=== PATIENT | female | born 1950 | race Caucasian/White ===

== ENCOUNTER 2017-02-22 07:28 | Day surgery (SDC) | payer BC ==
[2017-02-20 15:35] VITALS: BMI 24.5
[2017-02-22] MEDS ORDERED: DEXAMETHASONE SOD PHOSPHATE/PF 10 MG/ML SDV ONE (09:10)
[2017-02-22] MEDS ORDERED: MIDAZOLAM HCL 2 MG/2 ML SINGLE DOSE VIAL ONE (09:10)
[2017-02-22] MEDS ORDERED: ROPIVACAINE HCL 0.5% 30ML VIAL ONE (09:10)
[2017-02-22] MEDS ORDERED: PROPOFOL 20 ML ONE ×4 (09:34)
[2017-02-22] MEDS ORDERED: DEXAMETHASONE SOD PHOSPHATE 4 MG/1 ML VIAL ONE (10:39)
[2017-02-22] MEDS ORDERED: ceFAZolin SODIUM 1 GM VIAL ONE (10:39)
[2017-02-22] MEDS ORDERED: ONDANSETRON 4 MG/2 ML VIAL ONE (10:39)
[2017-02-22] MEDS ORDERED: LABETALOL HCL 5 MG/1 ML (100MG/20 ML VIAL) ONE (10:39)
[2017-02-22] MEDS ORDERED: EPINEPHrine 1:1,000 1 MG/1 ML - 30ML VIAL (INJECTION) ONE (10:40)
[2017-02-22] MEDS ORDERED: ONDANSETRON 4 MG/2 ML VIAL IVPUSH PRN (11:13)
[2017-02-22] MEDS ORDERED: PROMETHAZINE HCL 25 MG/1 ML VIAL IVPUSH PRN (11:13)
[2017-02-22] MEDS ORDERED: oxyCODONE HCL 5 MG TABLET PO PRN ×2 (11:13)
[2017-02-22] MEDS ORDERED: LACTATED RINGERS SOLUTION 1,000 ML IV SCH (11:15)
[2017-02-22 12:17] VITALS: TEMP 97.4
[2017-02-22] MEDS ORDERED: oxyCODONE HCL 5 MG TABLET ONE (12:19)
[2017-02-22 12:53] VITALS: BP 117/75; PULSE 74
--- NOTE | 2017-02-24 08:38 | OP ---
DATE OF OPERATION: 02/22/2017 SURGEON: Mars Butler MD MANAGER TECHNICAL SALES: [employer] PREOPERATIVE DIAGNOSES: 1. Left shoulder rotator cuff tear. 2. Left shoulder impingement syndrome. 3. Left shoulder acromioclavicular joint disease. 4. Left shoulder superior labral tear, [id number], with synovitis. 5. Dislocating, torn long head biceps tendon. POSTOPERATIVE DIAGNOSES: 1. Left shoulder rotator cuff tear. 2. Left shoulder impingement syndrome. 3. Left shoulder acromioclavicular joint disease. 4. Left shoulder superior labral tear, [id number], with synovitis. 5. Dislocating, torn long head biceps tendon. PROCEDURE: 1. Left shoulder arthroscopy with arthroscopic rotator cuff repair. 2. Left shoulder arthroscopy with subacromial decompression. 3. Left shoulder arthroscopy with resection of the subclavicle acromioclavicular joint. 4. Left shoulder arthroscopy with debridement/major. 5. Biceps tenodesis, long head biceps. CPT CODES: 76441, 37531, 24758, 34642 FINDINGS: 1. Excessive synovitis. 2. Diffuse grade 2, 3 cartilage injury to the glenoid and humerus. 3. Dislocation of biceps tendon with tearing of greater than 30% and extensive synovitis, biceps tendon. 4. Full-thickness rotator cuff tear. 5. Type 2 to 3 acromion with anterior spurring. 6. Inferior acromioclavicular joint disease. 7. Infraspinatus tear. 8. subscapularis tear. REPAIR TYPE: Due to the extensive dislocation and tearing of the biceps tendon, it was released from the superior labral insertion and a biceps tenodesis was repaired to a bleeding bone bed along the greater tuberosity. On top of this, rotator cuff repair was performed with 2 anchors placed into the supraspinatus and secured to a bleeding bone bed and incorporating the biceps tenodesis into the repair. PROCEDURE: Informed consent was obtained. The patient was taken to the operating room where the upper extremity was prepped and draped in a sterile fashion. The shoulder was manipulated for a full range of motion. Posterior incision portal was made and directed to glenohumeral joint. Under direct visualization, an anterior incision and portal was made. Extensive synovitis, as well as chondral injuries throughout the glenohumeral joint were dbrided and removed. Any identified labral injuries, including superior labral tear, anterior and posterior, and anterior labrum torn portions were removed as well. Rotator cuff was visualized and noted to have full-thickness tear. The edges were debrided. Posterior incision portal was redirected to subacromial space where a lateral incision portal was made. Excessive and thickened scar tissue noted throughout the subacromial space, including bursal and scar tissue, were removed. The type 2 acromion was converted into a flattened type 1 using a tabatha for subacromial decompression. Distal inferior spur at the distal clavicle was also dbrided with the use of accessory portal in the AC joint. The edges of the rotator cuff were identified. Sutures were placed into the rotator cuff and secured using anchors throughout the greater tuberosity. Prior to securing, a bleeding bed was made using a small tabatha, creating a bleeding surface of the rotator cuff insertion. The shoulder was then drained. A single suture as placed on all portals and a sterile dressing was placed. The patient was transferred to the recovery room without complication. MARS BUTLER M.D. [id number]
== END 2017-02-22 12:55 | disposition home or self-care (01) ==
LOC: FASU 07:28
PROVIDERS: ATTEND Orthopaedic Surgery
PROC: 0LS24ZZ Reposition Left Shoulder Tendon, Percutaneous Endoscopic Approach (ICD-10-PCS; 2017-02-22)
PROC: 0RNK4ZZ Release Left Shoulder Joint, Percutaneous Endoscopic Approach (ICD-10-PCS; 2017-02-22)
PROC: 0RBK4ZZ Excision of Left Shoulder Joint, Percutaneous Endoscopic Approach (ICD-10-PCS; 2017-02-22)
PROC: 0PBB4ZZ Excision of Left Clavicle, Percutaneous Endoscopic Approach (ICD-10-PCS; 2017-02-22)
PROC: 0LB24ZZ Excision of Left Shoulder Tendon, Percutaneous Endoscopic Approach (ICD-10-PCS; principal; 2017-02-22 10:15)
DX: M75.102 Unspecified rotator cuff tear or rupture of left shoulder, not specified as traumatic (principal); M75.42 Impingement syndrome of left shoulder; M19.012 Primary osteoarthritis, left shoulder; S43.432A Superior glenoid labrum lesion of left shoulder, initial encounter; S46.112A Strain of muscle, fascia and tendon of long head of biceps, left arm, initial encounter; X58.XXXA Exposure to other specified factors, initial encounter; Y93.9 Activity, unspecified; Y92.9 Unspecified place or not applicable
CPT/HCPCS: 94760

== ENCOUNTER 2019-10-12 06:04 | Inpatient (IN) | payer BC ==
[2019-10-07 15:47] VITALS: BMI 22.6
[2019-10-12] MEDS ORDERED: MIDAZOLAM HCL 2 MG/2 ML SINGLE DOSE VIAL ONE (07:10)
[2019-10-12] MEDS ORDERED: ROPIVACAINE HCL 0.5% 30ML VIAL ONE (07:11)
--- NOTE | 2019-10-12 07:11 | HP ---
History & Physical Update - History History: No Change - Physical Physical: No Change - Assessment Assessment: No Change - Plan Plan: No Change
[2019-10-12] MEDS ORDERED: VANCOMYCIN 1,000 MG VIAL (RESTRICTED TO ID ONLY) ONE ×2 (07:13→08:07)
[2019-10-12] MEDS ORDERED: TRANEXAMIC ACID 1000 MG/10 ML VIAL ONE ×2 (07:13→08:07)
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
[2019-10-12] MEDS ORDERED: PROPOFOL 20 ML ONE (07:45)
[2019-10-12] MEDS ORDERED: ROCURONIUM BROMIDE 50 MG/5 ML VIAL ONE ×2 (07:45→09:22)
[2019-10-12] MEDS ORDERED: LIDOCAINE HCL/PF 2% SDV 5ML VIAL ONE (07:46)
[2019-10-12] MEDS ORDERED: SODIUM CHLORIDE 0.9% P/F 10 ML VIAL IJ ONE ×2 (08:00→08:07)
[2019-10-12] MEDS ORDERED: ePHEDrine SULFATE 50 MG/1 ML AMPULE ONE ×2 (08:00→08:55)
[2019-10-12] MEDS ORDERED: ceFAZolin SODIUM 1 GM VIAL ONE (08:07)
[2019-10-12] MEDS ORDERED: DEXAMETHASONE SOD PHOSPHATE 4 MG/1 ML VIAL ONE (08:12)
[2019-10-12] MEDS ORDERED: ONDANSETRON 4 MG/2 ML VIAL ONE (08:12)
[2019-10-12] MEDS ORDERED: ONDANSETRON 4 MG/2 ML VIAL IVPUSH PRN (10:03)
[2019-10-12] MEDS ORDERED: VANCOMYCIN 1,000 MG VIAL (RESTRICTED TO ID ONLY) IVPB ONE (10:08)
[2019-10-12] MEDS ORDERED: ACETAMINOPHEN 325 MG TABLET (FP) PO SCH (10:15)
[2019-10-12] MEDS ORDERED: LACTATED RINGERS SOLUTION 1,000 ML IV SCH (10:15)
[2019-10-12] MEDS ORDERED: GLYCOPYRROLATE 0.2 MG/1 ML VIAL ONE (10:18)
[2019-10-12] MEDS ORDERED: NEOSTIGMINE METHYLSULFATE 0.5 MG/ML - 10 ML MDV ONE (10:19)
[2019-10-12] MEDS ORDERED: SUCCINYLCHOLINE CHLORIDE 200 MG/10 ML SYRINGE ONE (10:30)
[2019-10-12] MEDS ORDERED: ACETAMINOPHEN 1000 MG/100 ML VIAL (NON FORMULARY) IVPB ONE (11:40)
--- NOTE | 2019-10-12 11:42 | OPR ---
Procedure: Left Shoulder- 1. Reverse total shoulder arthroplasty (42682) 2. Biceps tenodesis (44789) 3. Removal of prior anchors in humeral head (58346) Preoperative Diagnoses: Left Shoulder- 1. Glenohumeral osteoarthritis 2. Rotator cuff tear 3. Biceps tendonitis/degeneration Postoperative Diagnoses: Left Shoulder- 1. Glenohumeral osteoarthritis 2. Rotator cuff tear 3. Biceps tendonitis/degeneration Surgeon: Kirill Pitts DO Assistants: Trenton Braun DO Anesthesia: General endotracheal anesthesia, IV regional with interscalene nerve block preop Estimated Blood Loss: 100 Total IV Fluids: Per anesthesia record Specimens: Humeral head Implants: [employer] Humelock Reversed System 24 mm baseplate with +6 mm post extension 4.5 mm locking screws x 3 36 mm, 10-degree tilt centered glenosphere with 3.5 mm offset 36mm/12mm humeral stem 22 mm standard screw +3 polyethylene insert with no build up Complications: None Disposition: PACU Condition: Hemodynamically stable Indications: January Pierce presented to us with the above noted diagnoses. She ultimately elected to proceed with surgical intervention after discussion of the risks, benefits, alternatives. We discussed risks including but not limited to, bleeding, pain, infection, scarring, damage to neurovascular structures, blood clots, pulmonary embolus, need for additional surgery, complications of the prosthesis including breakage or failure, incomplete relief of pain, and incomplete return of function. She expressed understanding and wished to proceed. We also discussed the risks and benefits of a conservative or non-surgical approach. We discussed risks including ongoing pain and dysfunction, or worsening pain and shoulder function. She underwent preoperative medical evaluation, clearance, and optimization prior to surgery. Procedure Details: She was identified in the preoperative area. The shoulder was marked as the operative site and consent was completed and confirmed. An interscalene block was performed by a member of the anesthesia team. She was later transferred to the operating room and placed in supine position the operating room. General anesthesia was induced without difficulty. She was repositioned into beach chair with all bony prominences appropriately padded. The neck was in neutral alignment. The upper extremity was prepped and draped in standard sterile fashion. A surgical time-out was performed identifying the correct patient, procedure, and site. Antibiotics were given within 1 hour prior to surgical incision. We began the procedure with a deltopectoral incision. Sharp dissection was carried down through the subcutaneous tissue down to the level of the fascia overlying the deltoid. Subcutaneous flaps were mobilized and developed and the deltopectoral interval was identified with cephalic vein, dissected and medially mobilized. Cephalic vein was protected throughout the case and was intact after the completion of the case. The biceps tendon was identified in the bicipital groove, it was clearly degenerated. We transected the biceps tendon distally and performed a tenodesis into the upper border of the pectoralis major using a #2 FiberWire suture in a figure of eight stitch fashion. Extra length of the tendon was then resected and it is entered into the rotator cuff interval. There was a tear of the supraspinatus tendon and there was only some bursal and capsular tissue remaining. The remaining rotator cuff tendons showed diffuse thinning and degeneration. Subscapularis was then tagged with #2 FiberWire stitch and was resected off the lesser tuberosity with electrocautery. Humeral head was then able to dislocate fully anteriorly as we completely removed the subscapularis and released the capsular insertion along the anatomic neck. The humeral head was devoid of articular cartilage diffusely and had a large inferior osteophyte. A sagittal saw was then used to resect the anatomic neck of the humeral head. Three metal suture anchors with suture material were removed from the greater tuberosity footprint. The canal was prepared with T-handle reamers and broaches. We then sequentially sized up to size 12 broach and found this to have a good fit. We used a planing reamer to clean up our cut to be in line with the stem. We set it to his natural retroversion of about 15 degrees. Attention was then directed towards the glenoid preparation. A Fukuda retractor was placed and the humeral shaft was retracted posteriorly. The subscapularis was identified and the long anterior glenoid retractor was placed to identify the axillary nerve. We placed the hohmann retractor over and protected it throughout our dissection of the glenoid either directly with visualization or with palpation with our finger. We then performed the global release of the subscapularis releasing adhesion from beneath the coracoid into the rotator cuff interval and glenoid. After complete global release, we circumferentially resected the labrum and reset the triceps origin which gave excellent exposure of the glenoid. The glenoid face had articular cartilage damage, posterior glenoid wear and significant synovitis. We used the peg guide for the center of the glenoid and we reamed the inferior portion for the preparation of the glenosphere baseplate with slight inferior inclination. We then used appropriate guides to drill the center peg hole and we were able to fit a 24mm +6 mm peg baseplate. Baseplate was then inserted down the proper orientation. Screws were then drilled for the 4.5 mm screws. We drilled the anterior and posterior screws first followed by the superior and inferior locking screws with max length based on the depth gauge. The anterior screw hole was left empty. The screws had excellent purchase and bite. We found the 36 mm glenosphere with lateral offset to be appropriately sized for the patient. We thoroughly irrigated this area and ultimately selected the 36 mm, 10-degree tilt glenosphere with 3.5 mm offset. This was inserted and impacted down without difficulty and it fits nicely without any impingement. We then turned our attention to the humerus dislocating it anteriorly and tried different humeral components. Ultimately, we selected a +3 polyethylene insert with no build up and placed it on the humeral stem. We trialed this and found excellent range of motion. There was no gaping or shuck and we selected the real components. We then prepared the humeral canal after removing the trial broach stem and dislocating the prior reduction of trial components. I thoroughly irrigated the humeral canal and I prepared it for the impaction of real stem component. Drill holes were made within the bicipital groove along the insertion of the subscapularis and somewhat more medial such that we will not have to pull the subscapularis all the way to its nenana insertion at the lesser tuberosity and we medialized it with the repair to some extent. #2 FiberWire sutures were placed in the humeral holes. The real component was seated nicely into the humeral canal with good stability and rotational stability. The polyethylene insert was then impacted in and dialed into the appropriate location. We then reduced the humerus on the glenosphere and took it through a range of motion without any evidence of instability or significant impingement. The subscapularis was then repaired with the transosseous sutures in a Oscar- Cory stitch configuration nicely repairing back into the anterior proximal humerus just covering the lesser tuberosity and medial to the lesser tuberosity. Extra length of the sutures were then cut and removed from the wound. Remainder of the incision was closed with a #1 Ethibond stitch running fashion for the deltopectoral interval keeping the vein superior to this level and then the wound was closed in a layered fashion with buried 0 Vicryl, 2-0 Vicryl, 3-0 Monocryl, and then Dermabond. The shoulder was sterilely dressed and placed in a shoulder immobilizer. Description of increased surgical complexity: The components of added complexity in this case relate to the use of a reverse prosthesis in the setting of glenohumeral arthritis, glenoid bone loss and deformity, and previous rotator cuff surgery. The extent of dissection and exposure required for reverse prosthesis is beyond that of a simple total shoulder replacement. There is additional complexity related to the prosthesis itself, fitting the components together, with respect to its three-dimensional geometry and tensioning of the soft tissue. This is being documented for insurance purposes only and reflects no inherent difficulties with this case whatsoever. Post-operative Details: Postoperative rehabilitation: Reverse TSA protocol. She will remain in a sling for 4 weeks. PROM exercises for 4 weeks; No pendulums early. No strengthening for at least 4 months. Attestation for program services assistant: Dr. Trenton Braun acted as the program services assistant. There was no qualified resident available to do so.
[2019-10-12] MEDS ORDERED: SODIUM CHLORIDE 1,000 ML IV SCH (11:45)
[2019-10-12] MEDS ORDERED: ACETAMINOPHEN INJECTION 100 ML IVPB ONE (11:45)
[2019-10-12] MEDS: ACETAMINOPHEN 500 MG TABLET (FP) PO SCH ×2 (11:45→17:54)
[2019-10-12] MEDS: HYDROCORTISONE 1% TOPICAL CREAM 30 GM TUBE TP SCH ×2 (13:50→21:18)
[2019-10-12] MEDS: oxyCODONE HCL 5 MG TABLET PO PRN ×2 (14:51→17:54)
[2019-10-12] MEDS ORDERED: CEFAZOLIN 2 GM/D5W 2 GM/50 ML ML IVPB SCH (16:00)
[2019-10-12] MEDS: CEFAZOLIN 2 GM/D5W 2 GM/50 ML ML IVPB SCH (18:28)
[2019-10-12] MEDS ORDERED: VANCOMYCIN 1 GRAM (PRE-DOCKED) 1,000 MG/250 ML BAG IVPB ONE (21:00)
[2019-10-12] MEDS: oxyCODONE HCL 10 MG SUSTAINED ACTING TABLET PO SCH (21:17)
[2019-10-12] MEDS ORDERED: PT OWN MED DRAWER 7, Y5N ONE (21:26)
[2019-10-12] MEDS: TIMOLOL 0.25% OPHTHALMIC SOL 5 ML BOTTLE OU SCH (21:27)
[2019-10-12] MEDS: LATANOPROST 0.005% OPHTH SOLN 2.5ML BOTTLE OU SCH (21:28)
[2019-10-12] MEDS ORDERED: SENNOSIDES/DOCUSATE COMBO (SENNA PLUS) TABLET (UD) PO SCH (22:00)
[2019-10-13] MEDS: ACETAMINOPHEN 500 MG TABLET (FP) PO SCH ×4 (01:03→18:01)
[2019-10-13] MEDS: CEFAZOLIN 2 GM/D5W 2 GM/50 ML ML IVPB SCH ×2 (01:54→10:14)
[2019-10-13] MEDS: oxyCODONE HCL 5 MG TABLET PO PRN ×4 (02:40→20:12)
--- NOTE | 2019-10-13 08:12 | PN ---
Progress Note (short form) - Note Progress Note: ORTHOPEDIC SURGERY PROGRESS NOTE Department of Orthopedic Surgery SUBJECTIVE No acute events overnight. No complaints currently. Denies chest pain, shortness of breath, or calf pain. No nausea or vomiting. Tolerating oral intake. Patient had an episode of "coldness" in her fingers last night which she attributed to her carpal tunnel syndrome. Pain control difficult overnight. PHYSICAL EXAMINATION General: Alert, oriented, cooperative and no distress. Upper Extremity: Dressing intact; Incision clean and dry. No significant swelling. Compartments soft. No rashes or ulcers noted. Gentle passive ROM, free from pain. M/R/U/MSK/AX motor intact; SILT distally; 2+ radial pulses; Cap refill brisk. DVT Exam: No evidence of DVT seen on physical exam; No cords or calf tenderness; No significant calf/ankle edema. Intake & Output 10/11/19 10/12/19 10/13/19 23:59 23:59 23:59 Intake Total 1100 Output Total 350 Balance 750 Intake: IV 1000 IVPB 100 Output: Urine 300 Void 300 Estimated Blood Loss 50 Other: Voiding Method Toilet Toilet Weight 120 lb Height 5 ft 1 in Body Mass Index (BMI) 22.6 Weight Measurement Method Standing Scale Active Medications Generic Name Dose Route Start Last Admin Trade Name Freq PRN Reason Stop Dose Admin Acetaminophen 1,000 mg 10/12/19 18:00 10/13/19 05:33 Tylenol - PO 10/15/19 17:59 1,000 mg Q6H ALIYAH Administration Aspirin 325 mg 10/13/19 10:00 Ecotrin - PO DAILY ALIYAH Fentanyl 25 mcg 10/12/19 10:03 Sublimaze Injection - IVPUSH [id number] PRN PAIN-PACU ORDER X 4 DOSES ONLY Hydrocortisone 1 applic 10/12/19 13:45 10/12/19 21:18 Hytone 1% Cream - TP 1 applic BID ALIYAH Administration Lactated Ringer's 1,000 mls @ 75 mls/hr 10/12/19 10:15 Lactated Ringers Solution IV ASDIR ALIYAH Cefazolin Sodium/Dextrose 2 gm in 50 mls @ 100 mls/hr 10/12/19 18:00 10/13/19 01:54 Ancef 2 Gm Premixed Ivpb - IVPB 10/13/19 10:29 100 mls/hr Q8H-IV ALIYAH Administration Latanoprost 1 drop 10/12/19 22:00 10/12/19 21:28 Xalatan 0.005% Eye Drops - OU 1 drop HS ALIYAH Administration Losartan Potassium 75 mg 10/13/19 10:00 Cozaar - PO DAILY ALIYAH Ondansetron HCl 4 mg 10/12/19 10:03 Zofran Injection IVPUSH Q6H PRN NAUSEA AND/OR VOMITING Oxycodone HCl 5 mg 10/12/19 10:03 10/12/19 17:54 Roxicodone - PO 5 mg Q3H PRN Administration PAIN LEVEL 1-5 Oxycodone HCl 10 mg 10/12/19 22:00 10/12/19 21:17 Oxycontin - PO 10 mg BID ALIYAH Administration Oxycodone HCl 10 mg 10/12/19 17:23 10/13/19 02:40 Roxicodone - PO 10 mg Q4H PRN Administration PAIN LEVEL 6-10 Rosuvastatin Calcium 10 mg 10/13/19 10:00 Crestor - PO DAILY ALIYAH Senna/Docusate Sodium 2 tablet 10/12/19 22:00 10/12/19 21:16 Pericolace - PO 10/13/19 12:50 2 tablet HS ALIYAH Administration Timolol Maleate 1 drop 10/12/19 22:00 10/12/19 21:27 Timoptic 0.25% OU 1 drop BID ALIYAH Administration Vital Signs (last) Temp Pulse Resp BP Pulse Ox 98.1 F 75 18 106/63 96 10/13/19 06:00 10/13/19 06:00 10/13/19 06:00 10/13/19 06:00 10/13/19 06:00 IMAGING Radiographs of the left shoulder were personally reviewed. They show the prosthesis in excellent position with no signs of hardware failure or dislocation. ASSESSMENT AND PLAN January Pierce is a 68 year old female status post left reverse total shoulder arthroplasty and biceps tenodesis. POD#1. Doing well. Hemodynamically stable. - Follow up AM labs - Pain control: Oxycontin q12, tylenol q6 and oxycodone PRN q4-6 hours - DVT prophylaxis: SCDs, early ambulation, and Aspirin 325mg daily for 3 weeks - Ice/Elevation - Shoulder immobilizer on at all times - Elevate HOB, encourage oral intake - Appreciate medical management - Decubitus precautions heel/sacrum - PT/OT; NWB LUE; AROM elbow, wrist and finger motion okay - Dispo planning: Plan for discharge tomorrow; patient requires an additional stay in the hospital for pain control. A prescription for oxycodone, aspirin, tylenol, ondansetron, and colace have been sent to [facility] ([facility]). A prescription for oxyCONTIN has been sent to [facility] ([phone]) The patient has a follow up appointment in my office on , October 22, 2019 at 11:00 AM.
[2019-10-13 08:17] LABS: ALBUMIN 3.2 g/dl (3.4-5.0); BILIRUBIN,TOTAL 1.9 mg/dl (0.2-1); CALCIUM 8.3 mg/dl (8.5-10); CREATININE 0.5 mg/dl (0.55-1.3); POTASSIUM 3.3 mmol/L (3.5-5.1); TOT PROT 5.3 g/dl (6.4-8.2)
[2019-10-13 08:18] LABS: BASO % 0.2 % (0-2.0); EOS % 0.2 % (0-4.5); HEMATOCRIT 33.6 % (32.4-45.2); HEMOGLOBIN 11.5 GM/dl (10.7-15.3); LYMPH % 20.9 % (8-40); MCH 32.5 pg (25.7-33.7); MCHC 34.1 g/dl (32.0-36.0); MEAN CELL VOLUME 95.1 fl (80-96); MEAN PLT VOLUME 8.3 fl (7.5-11.1); NEUT % 67.7 % (42.8-82.8); PLATELET COUNT 187 K/MM3 (134-434); RBC 3.54 M/mm3 (3.60-5.2); RDW 11.6 % (11.6-15.6); WHITE BLOOD COUNT 7.4 K/mm3 (4.0-10.8)
[2019-10-13] MEDS ORDERED: POTASSIUM CHLORIDE TABS 20 MEQ TABLET.ER (FP) PO ONE (08:46)
[2019-10-13] MEDS: oxyCODONE HCL 10 MG SUSTAINED ACTING TABLET PO SCH ×2 (09:00→22:38)
[2019-10-13] MEDS ORDERED: FAMOTIDINE 20 MG TABLET PO ONE (09:46)
--- NOTE | 2019-10-13 09:46 | PN ---
Progress Note (short form) - Note Progress Note: S: patient with some increased pain, however after new pain regimen has now localized to anterior L shoulder. Otherwise endorses heartburn currently. Denies any other symptoms. O: Vital Signs Temperature 98.6 F 10/13/19 10:30 Pulse Rate 80 10/13/19 10:30 Respiratory Rate 20 10/13/19 10:30 Blood Pressure 138/64 10/13/19 10:30 O2 Sat by Pulse Oximetry (%) 83 L 10/13/19 10:30 PE: Gen: NAD, awake, alert, oriented x3 HEENT: Nc/AT, TRISTAN, MMM Neck: No JVD LUNG: CTA b/l w/o wheezes/rales CARD: RRR no murmurs appreciated ABD: Soft, NT/ND, no guarding, + BS EXT: L shoulder with immobilizer, new dressing without any drainage (did not visualize wound today), L fingers with full ROM and intact sensation in all three dermatomes, pulses intact b/l. CBC, BMP 10/13/19 07:25 10/13/19 07:25 Active Medications Acetaminophen (Tylenol -) 1,000 mg PO Q6H [facility] Stop: 10/15/19 17:59 Last Admin: 10/13/19 05:33 Dose: 1,000 mg Documented by: Aspirin (Ecotrin -) 325 mg PO DAILY [facility] Last Admin: 10/13/19 10:14 Dose: 325 mg Documented by: Fentanyl (Sublimaze Injection -) 25 mcg IVPUSH [id number] PRN PRN Reason: PAIN-PACU ORDER X 4 DOSES ONLY Hydrocortisone (Hytone 1% Cream -) 1 applic TP BID [facility] Last Admin: 10/13/19 10:14 Dose: 1 applic Documented by: Lactated Ringer's (Lactated Ringers Solution) 1,000 mls @ 75 mls/hr IV ASDIR [facility] Last Admin: 10/13/19 08:39 Dose: Not Given Documented by: Latanoprost (Xalatan 0.005% Eye Drops -) 1 drop OU HS [facility] Last Admin: 10/12/19 21:28 Dose: 1 drop Documented by: Losartan Potassium (Cozaar -) 75 mg PO DAILY [facility] Last Admin: 10/13/19 10:16 Dose: 75 mg Documented by: Ondansetron HCl (Zofran Injection) 4 mg IVPUSH Q6H PRN PRN Reason: NAUSEA AND/OR VOMITING Oxycodone HCl (Roxicodone -) 5 mg PO Q3H PRN PRN Reason: PAIN LEVEL 1-5 Last Admin: 10/13/19 10:15 Dose: 5 mg Documented by: Oxycodone HCl (Oxycontin -) 10 mg PO BID [facility] Last Admin: 10/13/19 09:00 Dose: 10 mg Documented by: Oxycodone HCl (Roxicodone -) 10 mg PO Q4H PRN PRN Reason: PAIN LEVEL 6-10 Last Admin: 10/13/19 02:40 Dose: 10 mg Documented by: Rosuvastatin Calcium (Crestor -) 10 mg PO DAILY [facility] Last Admin: 10/13/19 10:14 Dose: 10 mg Documented by: Senna/Docusate Sodium (Pericolace -) 2 tablet PO [facility] Stop: 10/13/19 12:50 Last Admin: 10/12/19 21:16 Dose: 2 tablet Documented by: Timolol Maleate (Timoptic 0.25%) 1 drop OU BID [facility] Last Admin: 10/12/19 21:27 Dose: 1 drop Documented by: ASSESSMENT/PLAN: POD 1 L Reverse Total shoulder Arthroplasty Allergic Dermatitis GERD Glaucoma Hypertension history Hyperlipidemia History Hypokalemia --Pain management to be focus today with anticipation of d/c tomorrow --Currently well controlled with new regimen --Perioperative ABX per surgery --ASA 325mg qdaily [id number] for DVT ppx --Incentive spirometry to continue --Shoulder immobilizer and ice packs to continue --Continue PT and coordinate with pain regimen --Pepcid x1 for acute reflux symptoms today; can continue PRN --Adhesive allergic dermatitis: Topical cream BID --Continue home eye gtt regimen --HTN currently stable on Losartan; continue --Continue statin FEN: Fluids: D/c as patient tolerating oral Electrolyte abnormalities: Hypokalemia; repleted with Kdur 40 x1 (Mg WNL) Nutrition: Regular diet PPX: See above, Early ambulation Dispo: anticipate D/c tomorrow if follows current improvement Mars Pastrana DO - IM
[2019-10-13] MEDS ORDERED: PT OWN MED DRAWER 7, Y5N ONE (10:03)
[2019-10-13] MEDS: HYDROCORTISONE 1% TOPICAL CREAM 30 GM TUBE TP SCH ×2 (10:14→22:15)
[2019-10-13] MEDS: ASPIRIN 325 MG ENTERIC COATED TABLET (FP) PO SCH (10:14)
[2019-10-13] MEDS: ROSUVASTATIN CA 10 MG TABLET (FP) PO SCH (10:14)
--- NOTE | 2019-10-13 10:15 | PN ---
Progress Note (short form) - Note Progress Note: Anesthesia Post op S:Pt walking comfortably in room. Denies N/V O:Pt moving upper extremities No paresthesias A/P:POD #1 left reverse total shoulder -No apparent Anesthesia complications -Cont current pain regimen
[2019-10-13] MEDS: LOSARTAN POTASSIUM 25 MG TABLET PO SCH (10:16)
[2019-10-13] MEDS: TIMOLOL 0.25% OPHTHALMIC SOL 5 ML BOTTLE OU SCH ×2 (12:16→22:41)
[2019-10-13] MEDS: LATANOPROST 0.005% OPHTH SOLN 2.5ML BOTTLE OU SCH (22:41)
[2019-10-14] MEDS: ACETAMINOPHEN 500 MG TABLET (FP) PO SCH ×3 (00:32→12:15)
[2019-10-14] MEDS: oxyCODONE HCL 5 MG TABLET PO PRN (04:07)
--- NOTE | 2019-10-14 06:34 | PN ---
Progress Note (short form) - Note Progress Note: ORTHOPEDIC SURGERY PROGRESS NOTE Department of Orthopedic Surgery SUBJECTIVE No acute events overnight. No complaints currently. Denies chest pain, shortness of breath, or calf pain. No nausea or vomiting. Tolerating oral intake. Pain controlled. PHYSICAL EXAMINATION General: Alert, oriented, cooperative and no distress. Upper Extremity: Dressing intact; No significant swelling. Compartments soft. No rashes or ulcers noted. Gentle passive ROM, free from pain. M/R/U/MSK/AX motor intact; SILT distally; 2+ radial pulses; Cap refill brisk. DVT Exam: No evidence of DVT seen on physical exam; No cords or calf tenderness; No significant calf/ankle edema. Intake & Output 10/12/19 10/13/19 10/14/19 23:59 23:59 23:59 Intake Total 1100 900 Output Total 350 Balance 750 900 Intake: IV 1000 IVPB 100 50 Oral 850 Output: Urine 300 Void 300 Estimated Blood Loss 50 Other: Voiding Method Toilet Toilet Toilet # Unmeasured Voids Void 2 Bowel Movement No Weight 120 lb Height 5 ft 1 in Body Mass Index (BMI) 22.6 Weight Measurement Method Standing Scale Active Medications Generic Name Dose Route Start Last Admin Trade Name Freq PRN Reason Stop Dose Admin Acetaminophen 1,000 mg 10/12/19 18:00 10/14/19 05:44 Tylenol - PO 10/15/19 17:59 1,000 mg Q6H ALIYAH Administration Aspirin 325 mg 10/13/19 10:00 10/13/19 10:14 Ecotrin - PO 325 mg DAILY [facility]IYAH Administration Fentanyl 25 mcg 10/12/19 10:03 Sublimaze Injection - IVPUSH [id number] PRN PAIN-PACU ORDER X 4 DOSES ONLY Hydrocortisone 1 applic 10/12/19 13:45 10/13/19 22:15 Hytone 1% Cream - TP 1 applic BID [facility]IYAH Administration Latanoprost 1 drop 10/12/19 22:00 10/13/19 22:41 Xalatan 0.005% Eye Drops - OU 1 drop HS [facility]IYAH Administration Losartan Potassium 75 mg 10/13/19 10:00 10/13/19 10:16 Cozaar - PO 75 mg DAILY [facility] Administration Ondansetron HCl 4 mg 10/12/19 10:03 Zofran Injection IVPUSH Q6H PRN NAUSEA AND/OR VOMITING Oxycodone HCl 5 mg 10/12/19 10:03 10/13/19 10:15 Roxicodone - PO 5 mg Q3H PRN Administration PAIN LEVEL 1-5 Oxycodone HCl 10 mg 10/12/19 22:00 10/13/19 22:38 Oxycontin - PO 10 mg BID ALIYAH Administration Oxycodone HCl 10 mg 10/12/19 17:23 10/14/19 04:07 Roxicodone - PO 10 mg Q4H PRN Administration PAIN LEVEL 6-10 Rosuvastatin Calcium 10 mg 10/13/19 10:00 10/13/19 10:14 Crestor - PO 10 mg DAILY [facility]IYAH Administration Timolol Maleate 1 drop 10/12/19 22:00 10/13/19 22:41 Timoptic 0.25% OU 1 drop BID [facility] Administration Vital Signs (last) Temp Pulse Resp BP Pulse Ox 98.4 F 71 18 116/68 97 10/14/19 02:00 10/14/19 02:00 10/14/19 02:00 10/14/19 02:00 10/14/19 02:00 Laboratory 10/13/19 07:25 10/13/19 07:25 IMAGING Radiographs of the left shoulder were personally reviewed. They show the prosthesis in excellent position with no signs of hardware failure or disloca tion. ASSESSMENT AND PLAN January Pierce is a 68 year old female status post left reverse total shoulder arthroplasty and biceps tenodesis. POD#2. Doing well. Hemodynamically stable. - Pain control - DVT prophylaxis: SCDs, early ambulation, and Aspirin 325mg daily for 3 weeks - Ice/Elevation - Shoulder immobilizer on at all times - Elevate HOB, encourage oral intake - Appreciate medical management - Decubitus precautions heel/sacrum - PT/OT; NWB LUE; AROM elbow, wrist and finger motion okay - Dispo planning: Ortho stable for discharge today. A prescription for oxycodone, aspirin, tylenol, ondansetron, and colace have been sent to [facility] ([facility]). A prescription for oxyCONTIN has been sent to [facility] pharmacy ([phone]) The patient has a follow up appointment in my office on October at 11:00 AM.
[2019-10-14 06:57] VITALS: BP 130/60; PULSE 77; TEMP 98.7
[2019-10-14 08:36] LABS: CALCIUM 8.8 mg/dl (8.5-10); CREATININE 0.6 mg/dl (0.55-1.3); POTASSIUM 4.1 mmol/L (3.5-5.1)
[2019-10-14] MEDS: oxyCODONE HCL 10 MG SUSTAINED ACTING TABLET PO SCH (09:00)
[2019-10-14] MEDS: ASPIRIN 325 MG ENTERIC COATED TABLET (FP) PO SCH (09:06)
[2019-10-14] MEDS: HYDROCORTISONE 1% TOPICAL CREAM 30 GM TUBE TP SCH (09:06)
--- NOTE | 2019-10-14 09:38 | DS ---
Physical Exam: SUBJECTIVE: Patient seen; refuses physical examination. OBJECTIVE: Vital Signs Period Temp Pulse Resp BP Sys/Christopher Pulse Ox Last 24 Hr 98.2 F-98.7 F 71-80 18-20 116-138/60-70 83-100 PHYSICAL EXAM Refuses. PE conducted earlier today by orthopedic surgeon. LABS Laboratory Results - last 24 hr 10/14/19 07:27 Sodium 138 Potassium 4.1 Chloride 103 Carbon Dioxide 26 Anion Gap 9 BUN 8.0 Creatinine 0.6 Est GFR (CKD-EPI)AfAm 109.31 Est GFR (CKD-EPI)NonAf 94.32 Random Glucose 114 H Calcium 8.8 HOSPITAL COURSE: This is a 68 year-old female with a PMH significant for HTN, HLD, glaucoma, and left shoulder glenohumeral arthritis s/p left reverse total shoulder arthroplasty with Dr. Kirill Pitts on 10/11. Patient is doing well post- operatively. To be discharged today in shoulder immobilizer with ASA 325mg daily x 3 wks for DVT ppx, oxycontin/oxycodone for pain, Zofran for nausea, colace for bowel regimen. To follow up with Dr. Pitts. Date of Admission:10/12/19 Date of Discharge: 10/14/19 Minutes to complete discharge: 35 Discharge Summary Problems reviewed: Yes Reason For Visit: LEFT SHOULDER GLENOHMERAL ARTHRITIS Current Active Problems Status post reverse total arthroplasty of left shoulder (Acute) GERD (gastroesophageal reflux disease) (Chronic) Hyperlipidemia (Chronic) Hypertension (Chronic) Condition: Good - Instructions Diet, Activity, Other Instructions: Take pain medications as needed (oxycontin, oxycodone, tylenol) Use ondansetron as needed for nausea Take colace to prevent constipation Apply ice and keep the arm elevated; use the shoulder immobilizer at all times Take aspirin 325mg daily for 3 weeks to prevent blood clots A prescription for oxycodone, aspirin, tylenol, ondansetron, and colace have been sent to [facility] ([facility] A prescription for oxyCONTIN has been sent to [facility] ([phone]) Follow up with Dr Pitts at your scheduled appointment Referrals: Kirill Pitts DO [Staff Physician] - (, October 22, 2019 at 11:00 AM) Disposition: HOME - Home Medications Comprehensive Discharge Medication List: Ambulatory Orders Timolol 0.25% [Timoptic 0.25%] 1 drop OU BID 11/14/12 Travoprost (Benzalkonium) [Travatan 0.004% Eye Drop] 1 drop OU HS 11/14/12 Cholecalciferol (Vitamin D3) [Vitamin D3] 2,000 unit PO DAILY 02/20/17 Losartan Potassium 75 mg PO DAILY 02/20/17 Rosuvastatin Calcium [Crestor] 10 mg PO DAILY 02/20/17 Hydrocodone/Acetaminophen [Hydrocodone-Acetamin 7.5-300] 1 each PO BID PRN 09/19 06/07 This patient is new to me today: Yes Date on this admission: 10/14/19 Emergency Visit: No Critical Care patient: No - Discharge Referral Referred to [facility] No
[2019-10-14] MEDS: LOSARTAN POTASSIUM 25 MG TABLET PO SCH (10:05)
[2019-10-14] MEDS: ROSUVASTATIN CA 10 MG TABLET (FP) PO SCH (10:05)
[2019-10-14] MEDS: TIMOLOL 0.25% OPHTHALMIC SOL 5 ML BOTTLE OU SCH (10:10)
--- NOTE | 2019-10-14 16:34 | PATH ---
Surgical Pathology Report Patient Name: CHRIS RUTHERFORD Med. Rec. #: [id number] /Age/Gender: 1950 (Age: 68) / F Account: [id number] Location: [facility] Taken: 10/12/2019 Received: 10/12/2019 Reported: 10/14/2019 Physicians: Kirill Pitts DO Specimen(s) Received LEFT HUMERAL HEAD Clinical History Left shoulder glenohumeral arthritis Final Diagnosis LEFT HUMERAL HEAD, RESECTION: DEGENERATIVE JOINT DISEASE, LEFT SHOULDER. Electronically Signed Karey Mccracken M.D. Gross Description Received in formalin labeled "left humeral head," is a 4.5 x 4.5 x 1.0 cm alfonso-yellow portion of bone, consistent with a portion of humeral head. The margin of resection is smooth. There is a 2.9 cm in greatest dimension area of eburnation present. The remaining articular surface is alfonso-yellow and diffusely nodular and granular. The underlying trabecular bone is yellow and hard. A sales representative malt liquors section is submitted in one cassette, following decalcification. 10/13/2019 saudi10/13/2019
== END 2019-10-14 13:38 | disposition home or self-care (01) | DRG 497 ==
LOC: FM/S 06:04
PROVIDERS: ADMIT Orthopaedic Surgery; ATTEND Registered Nurse Emergency
PROC: 0RQK0ZZ Repair Left Shoulder Joint, Open Approach (ICD-10-PCS; 2019-10-12)
PROC: 0LS40ZZ Reposition Left Upper Arm Tendon, Open Approach (ICD-10-PCS; 2019-10-12)
PROC: 0RPK0JZ Removal of Synthetic Substitute from Left Shoulder Joint, Open Approach (ICD-10-PCS; principal; 2019-10-12 08:32)
DX: M19.012 Primary osteoarthritis, left shoulder (principal); M75.102 Unspecified rotator cuff tear or rupture of left shoulder, not specified as traumatic; M75.22 Bicipital tendinitis, left shoulder; I10 Essential (primary) hypertension; E87.6 Hypokalemia; E78.5 Hyperlipidemia, unspecified; H40.9 Unspecified glaucoma; K21.9 Gastro-esophageal reflux disease without esophagitis; L30.8 Other specified dermatitis
CPT/HCPCS: 36415; 73030-TC-LT-FY; 80048; 80053; 83735; 85025; 88304-TC; 88311-TC; 94760; J0131

== ENCOUNTER 2024-08-24 06:08 | Day surgery (SDC) | payer BC ==
[2024-08-20 11:00] VITALS: BMI 23.4
[2024-08-24] MEDS ORDERED: SUCCINYLCHOLINE CHLORIDE 200 MG/10 ML SYRINGE ONE (07:13)
[2024-08-24] MEDS ORDERED: ROCURONIUM BROMIDE 50 MG/5 ML SYRINGE ONE (07:13)
[2024-08-24] MEDS ORDERED: SODIUM CHLORIDE 0.9% P/F 10 ML VIAL IJ ONE (07:13)
[2024-08-24] MEDS ORDERED: GLYCOPYRROLATE 0.2 MG/1 ML VIAL ONE (07:13)
[2024-08-24] MEDS ORDERED: DEXAMETHASONE SOD PHOSPHATE 4 MG/1 ML VIAL ONE (07:13)
[2024-08-24] MEDS ORDERED: ONDANSETRON 4 MG/2 ML VIAL ONE (07:13)
[2024-08-24] MEDS ORDERED: METOCLOPRAMIDE HCL INJECTION 10 MG/2 ML VIAL ONE (07:13)
[2024-08-24] MEDS ORDERED: PROPOFOL 20 ML ONE (07:18)
[2024-08-24] MEDS ORDERED: MIDAZOLAM HCL 2 MG/2 ML SINGLE DOSE VIAL ONE (07:19)
[2024-08-24] MEDS ORDERED: TRANEXAMIC ACID 1000 MG/10 ML VIAL ONE ×2 (07:22→08:21)
[2024-08-24] MEDS ORDERED: VANCOMYCIN 1,000 MG VIAL (RESTRICTED TO ID ONLY) ONE ×3 (07:22→09:39)
[2024-08-24] MEDS ORDERED: BUPIVACAINE LIPOSOME/PF (EXPAREL) 266 MG/20 ML VIAL ONE (07:24)
[2024-08-24] MEDS ORDERED: BUPIVACAINE HCL/PF 0.5% (5MG/ML) 10 ML VIAL ONE (07:24)
[2024-08-24] MEDS ORDERED: PROPOFOL 60 ML ONE (08:23)
[2024-08-24] MEDS ORDERED: PHENYLEPHRINE HCL 10 MG/1 ML SINGLE DOSE VIAL ONE (08:25)
[2024-08-24] MEDS ORDERED: SUGAMMADEX SODIUM 200 MG/2 ML VIAL ONE (09:39)
[2024-08-24] MEDS: TRANEXAMIC ACID 1000 MG/10 ML VIAL IVPB ONE (09:45)
[2024-08-24] MEDS ORDERED: ACETAMINOPHEN INJECTION 100 ML ONE (09:53)
[2024-08-24] MEDS: VANCOMYCIN 1,000 MG VIAL (RESTRICTED TO ID ONLY) IVPB ONE (09:55)
[2024-08-24] MEDS ORDERED: LACTATED RINGERS SOLUTION 1,000 ML IV SCH (10:00)
[2024-08-24] MEDS ORDERED: [UNRECOGNIZED DRUG - OTHER] PO PRN (10:36)
[2024-08-24] MEDS ORDERED: ONDANSETRON 4 MG/2 ML VIAL IVPUSH PRN (10:39)
[2024-08-24] MEDS ORDERED: MAG HYDROX/AL HYDROX/SIMETH 30 ML UNIT-DOSE CUP PO PRN (10:39)
[2024-08-24] MEDS: LACTATED RINGERS SOLUTION 1,000 ML IV SCH (11:15)
[2024-08-24] MEDS ORDERED: SENNOSIDES 8.6MG TABLET (FP) PO SCH (12:00)
[2024-08-24] MEDS: CEFAZOLIN 2 GM/D5W 2 GRAM/50 ML ML IVPB SCH (16:15)
[2024-08-24] MEDS: ACETAMINOPHEN 500 MG TABLET (FP) PO SCH (16:15)
[2024-08-24] MEDS: LOSARTAN POTASSIUM 50 MG TABLET PO SCH (21:28)
[2024-08-24] MEDS: SENNOSIDES/DOCUSATE COMBO (SENNA PLUS) TABLET (UD) PO SCH (21:28)
[2024-08-24] MEDS: TIMOLOL 0.5% OPHTHALMIC SOL 5 ML BOTTLE OU SCH (21:28)
[2024-08-24] MEDS: VANCOMYCIN/WATER FOR INJ (PEG) 1 GM/200 ML BAG IVPB ONE (21:29)
[2024-08-24] MEDS: DORZOLAMIDE 2% HCL OPHTHALMIC SOLUTION 10 ML BOTTLE OS SCH (21:29)
[2024-08-24] MEDS ORDERED: APRACLONIDINE OS SCH (22:00)
[2024-08-25 02:11] VITALS: RESP 18
[2024-08-25 07:51] LABS: MCHC 33.5 g/dl (32.2-35.5); MEAN CELL VOLUME 96.0 fl (79.4-94.8); MEAN PLT VOLUME 9.7 fl (9.4-12.3); RDW 12.6 % (12.4-16.6)
[2024-08-25 08:47] LABS: CO2 27.0 mmol/L (21-32); CREATININE 0.6 mg/dl (0.6-1.3); GLUCOSE,RANDOM 110.0 mg/dl (74-106)
[2024-08-25] MEDS: NIFEdipine E.R. 30 MG TABLET PO SCH (09:47)
[2024-08-25] MEDS: PANTOPRAZOLE 40 MG TABLET PO SCH (09:47)
[2024-08-25] MEDS: AMITRIPTYLINE HCL 25 MG TABLET PO SCH (09:47)
[2024-08-25] MEDS: MULTIVITAMINS (DAILY MVI) TABLET (FP) PO SCH (09:47)
[2024-08-25] MEDS: ASPIRIN COATED 81 MG TABLET.EC PO SCH (09:48)
[2024-08-25 11:22] VITALS: BP 102/78; PULSE 72; TEMP 98.1
[2024-08-25] MEDS ORDERED: ROSUVASTATIN CA 10 MG TABLET PO SCH (22:00)
== END 2024-08-25 13:43 | disposition home or self-care (01) ==
LOC: SUATTDRO 06:08 → FASUSAT 06:08 → FM/S 11:20 → FASUSAT 08-25 13:43
PROC: 0RRJ0J6 Replacement of Right Shoulder Joint with Synthetic Substitute, Humeral Surface, Open Approach (ICD-10-PCS; 2024-08-24)
PROC: 0RPJ0J6 Removal of Synthetic Substitute from Right Shoulder Joint, Humeral Surface, Open Approach (ICD-10-PCS; principal; 2024-08-24 08:41)
DX: M75.101 Unspecified rotator cuff tear or rupture of right shoulder, not specified as traumatic (principal); M75.21 Bicipital tendinitis, right shoulder; M19.011 Primary osteoarthritis, right shoulder
CPT/HCPCS: 23430; 23472; C1713; 36415; 73030-TC-RT-FY; 80048; 85027; 88304-TC; 88305-TC; 88311-TC; 94760; 97116-GP; 97161-GP; C1757; C1776; C1889; J0666